=== PATIENT | female | born 1960 | race Hispanic/Latino ===

== ENCOUNTER 2018-04-07 16:56 | Outpatient (RCR) | payer BC ==
[~2018-04-07 16:56] MED LIST: BACTRIM DS1 EA PO; KEFLEX500 MG PO; PANTOPRAZOLE SO40 MG PO; Z B COMPLEX PO; Z.0.AMLODIPINE BESYL PO; Z.0.HYDROCHLOROTH12. PO; Z.0.LISINOPRIL40 MG PO
--- NOTE | 2018-04-09 22:01 | Discharge Summary ---
ASHLY MORENO (00:13) MARIE CHRISTINA MD Job#: [id number]
== END 2018-04-09 ==
LOC: PT 16:56
PROVIDERS: ATTEND Neurological Surgery
DX: M47.896 Other spondylosis, lumbar region (principal)

== ENCOUNTER 2018-05-04 08:00 | Outpatient (RCR) | payer BC | END 2018-05-09 | LOC: PT 08:00 | PROVIDERS: ATTEND Neurological Surgery | DX: M47.896 Other spondylosis, lumbar region (principal); M53.86 Other specified dorsopathies, lumbar region; M54.5 Low back pain; M62.81 Muscle weakness (generalized); E66.01 Morbid (severe) obesity due to excess calories ==

== ENCOUNTER 2018-05-14 08:04 | Outpatient (RCR) | payer BC | END 2018-06-09 | LOC: PT 08:04 | PROVIDERS: ATTEND Neurological Surgery | DX: M47.896 Other spondylosis, lumbar region (principal); M54.5 Low back pain; M53.86 Other specified dorsopathies, lumbar region; M62.81 Muscle weakness (generalized); M06.9 Rheumatoid arthritis, unspecified; E66.01 Morbid (severe) obesity due to excess calories ==

== ENCOUNTER 2020-09-12 17:18 | Emergency (ER) | payer BC ==
[~2020-09-12] VITALS: Ht 152.4 cm; Wt 96.6 kg
[~2020-09-12 17:18] MED LIST changes: -ONDANSETRON HCL 4 MG ORAL DISINTEGRATING TAB ONE
== END 2020-09-12 20:06 | disposition home or self-care (01) ==
LOC: ER 17:55
DX: R10.13 Epigastric pain (principal); K42.9 Umbilical hernia without obstruction or gangrene; R91.8 Other nonspecific abnormal finding of lung field
CPT/HCPCS: 74176; 93005; 99283

== ENCOUNTER → 2020-09-12 | Day surgery (SDC) | payer BC ==
[~2020-09-12] MED LIST changes: +AMBIEN5 MG PO; +ATIVAN0.5 MG PO; +HYDROCODON-ACE1 EA11 PO; +IRBESARTAN-HCT1 EACH PO; +LIPITOR10 MG PO; +ONDANSETRON HCL 4 MG ORAL DISINTEGRATING TAB ONE; +PREDNISONE5 MG PO
[2020-09-12 09:50] VITALS: BP 120/56
== END | disposition home or self-care (01) ==
LOC: OR 05:59
PROVIDERS: ATTEND Internal Medicine Gastroenterology
DX: K21.9 Gastro-esophageal reflux disease without esophagitis (principal); D12.0 Benign neoplasm of cecum; D12.3 Benign neoplasm of transverse colon; D12.4 Benign neoplasm of descending colon; D12.5 Benign neoplasm of sigmoid colon; D12.8 Benign neoplasm of rectum; K31.7 Polyp of stomach and duodenum; K29.50 Unspecified chronic gastritis without bleeding; K31.89 Other diseases of stomach and duodenum; K57.30 Diverticulosis of large intestine without perforation or abscess without bleeding; K64.8 Other hemorrhoids; G47.33 Obstructive sleep apnea (adult) (pediatric); I10 Essential (primary) hypertension; E78.5 Hyperlipidemia, unspecified; M19.90 Unspecified osteoarthritis, unspecified site; Z01.810 Encounter for preprocedural cardiovascular examination; Z01.812 Encounter for preprocedural laboratory examination; Z20.822 Contact with and (suspected) exposure to COVID-19
CPT/HCPCS: 43239; 45384; 45385; 93005; Q0162; U0002; 45378

== ENCOUNTER → 2021-04-10 | Outpatient (CLI) | payer OTHER ==
[~2021-04-10] MED LIST changes: +IOPAMIDOL 370 MG/ML 200 ML INFUS..BTL INJ ONE; +SODIUM CHLORIDE 0.9% 50ML 50 ML ONE
== END ==
LOC: CT 09:52
PROVIDERS: ATTEND Internal Medicine Gastroenterology
DX: R14.0 Abdominal distension (gaseous) (principal); R10.10 Upper abdominal pain, unspecified
CPT/HCPCS: 74160; Q9967

== ENCOUNTER → 2021-06-19 | Outpatient (CLI) | payer OTHER ==
[~2021-06-19] MED LIST changes: -IOPAMIDOL 370 MG/ML 200 ML INFUS..BTL INJ ONE; -SODIUM CHLORIDE 0.9% 50ML 50 ML ONE
== END ==
LOC: CT 16:12
PROVIDERS: ATTEND Internal Medicine
DX: R91.1 Solitary pulmonary nodule (principal)
CPT/HCPCS: 71250

== ENCOUNTER → 2021-06-26 | Outpatient (CLI) | payer OTHER | LOC: RESP 07:57 | PROVIDERS: ATTEND Internal Medicine | DX: R06.09 Other forms of dyspnea (principal) | CPT/HCPCS: 94060; 94640; 94727; 94729 ==

== ENCOUNTER → 2021-09-06 | Day surgery (SDC) | payer OTHER ==
[~2021-09-06] MED LIST changes: +FAMOTIDINE 20 MG/2 ML VIAL IV ONE; +FENTANYL CITRATE/PF 100MCG/2 ML INJ ONE; +JANUVIA50 MG PO; +LIDOCAINE HCL 2% LOCAL INJ 5 ML SDV VIAL INJ ONE; +METOCLOPRAMIDE HCL 10 MG/2ML VIAL ONE; +MIDAZOLAM HCL 2 MG/2 ML VIAL ONE; +ONDANSETRON HCL INJ 2MG/ML 2ML 2 MG/ML VIAL ONE; +POVIDONE IODINE 0.05% 0.05 % ML PO ONE; +PROPOFOL IV EMULSION 10 MG/ML 20 ML VIAL ONE; +SUCRALFATE1 GM PO
[2021-09-06 10:39] VITALS: BP 140/72
== END | disposition home or self-care (01) ==
LOC: OR 07:54
PROVIDERS: ATTEND Internal Medicine Gastroenterology
DX: Z12.11 Encounter for screening for malignant neoplasm of colon (principal); K63.5 Polyp of colon; K62.1 Rectal polyp; K57.30 Diverticulosis of large intestine without perforation or abscess without bleeding; K64.8 Other hemorrhoids; K29.70 Gastritis, unspecified, without bleeding; K21.9 Gastro-esophageal reflux disease without esophagitis; Z71.3 Dietary counseling and surveillance; G47.33 Obstructive sleep apnea (adult) (pediatric); I10 Essential (primary) hypertension; M06.9 Rheumatoid arthritis, unspecified; E11.9 Type 2 diabetes mellitus without complications; E66.9 Obesity, unspecified; F41.9 Anxiety disorder, unspecified; Z01.810 Encounter for preprocedural cardiovascular examination; Z79.84 Long term (current) use of oral hypoglycemic drugs; Z79.899 Other long term (current) drug therapy; Z68.41 Body mass index [BMI] 40.0-44.9, adult; Z80.0 Family history of malignant neoplasm of digestive organs
CPT/HCPCS: 36415; 45378; 45384; 82948; 93005; J2001; J2250; J2405; J2765; J3010

== ENCOUNTER → 2021-10-21 | Outpatient (CLI) | payer OTHER ==
[~2021-10-21] MED LIST changes: -FAMOTIDINE 20 MG/2 ML VIAL IV ONE; -FENTANYL CITRATE/PF 100MCG/2 ML INJ ONE; +HUMIRA40 MG/0.8 SC; -LIDOCAINE HCL 2% LOCAL INJ 5 ML SDV VIAL INJ ONE; -METOCLOPRAMIDE HCL 10 MG/2ML VIAL ONE; -MIDAZOLAM HCL 2 MG/2 ML VIAL ONE; -ONDANSETRON HCL INJ 2MG/ML 2ML 2 MG/ML VIAL ONE; -POVIDONE IODINE 0.05% 0.05 % ML PO ONE; -PROPOFOL IV EMULSION 10 MG/ML 20 ML VIAL ONE
== END ==
LOC: CT 16:54
PROVIDERS: ATTEND Internal Medicine
DX: R91.1 Solitary pulmonary nodule (principal)
CPT/HCPCS: 71250

== ENCOUNTER → 2021-12-02 | Outpatient (CLI) | payer OTHER | LOC: MRI 11:46 | PROVIDERS: ATTEND Internal Medicine Rheumatology | DX: M06.09 Rheumatoid arthritis without rheumatoid factor, multiple sites (principal); G89.29 Other chronic pain; M25.551 Pain in right hip; M25.562 Pain in left knee; M25.561 Pain in right knee; M54.50 Low back pain, unspecified | CPT/HCPCS: 72148 ==

== ENCOUNTER → 2022-10-21 | Outpatient (CLI) | payer OTHER | LOC: CT 07:47 | PROVIDERS: ATTEND Internal Medicine | DX: R91.1 Solitary pulmonary nodule (principal) | CPT/HCPCS: 71250 ==